=== PATIENT | male | born 1970 | race Hispanic/Latino ===

== ENCOUNTER 2018-10-12 01:03 | Emergency (ER) | payer OTHER ==
[~2018-10-12] VITALS: Ht 172.7 cm; Wt 147.0 kg
--- OUTSIDE RECORDS SUMMARY | 2018-10-12 01:06 | XMS REPORT | CCD ---
Author Author Auto Generated Organization [facility] [place] Address Unknown Phone Unavailable Care Team Providers Care Risk Intern Name Role Phone Pan Escobedo CP [phone] Allergies, Adverse Reactions, Alerts Substance Reaction Status No Known Medication Allergies Active Problem List Condition Effective Dates Status Abnormal EKG finding Active Allergic rhinitis Active BPH - Benign prostatic hypertrophy Active Deviated nasal septum Active Diabetes mellitus type 2 Active Diverticulitis 2013 Active Foot pain Active History of colonic polyp Active Hypercholesterolemia Active Hypertension Active Iron deficiency anemia Active Morbid obesity Active Ostomy care Active Plantar fasciitis Active Short Achilles tendon Active Sleep apnea Active Vitamin D deficiency Active Medications Medication Instructions Start Date End Date Status bisoprolol 5 mg oral 5 mg=1 tabs, Oral, qHS, 0 12/11/2015 12/25/2015 Ordered tablet Refill(s), HTN Lidocaine 2% 0.2 mL 0.2 mL, Injection, Subcutaneous, 12/23/2015 12/23/2015 Deleted IV Start [[facility]] Once PRN for other (see comment), first dose 12/23/15 6:15:00 CDT LR 1,000 mL 1,000 mL, IV, 30 mL/hr, start date 12/23/2015 12/23/2015 Discontinued 12/23/15 6:15:00 CDT fentaNYL 25 mcg=0.5 mL, Injection, IV, Once, 12/23/2015 12/23/2015 Completed first dose 12/23/15 7:37:00 CDT, stop date 12/23/15 7:37:00 CDT fentaNYL 25 mcg=0.5 mL, Injection, IV, Once, 12/23/2015 12/23/2015 Completed first dose 12/23/15 7:46:00 CDT, stop date 12/23/15 7:46:00 CDT fentaNYL 50 mcg=1 mL, Injection, IV, Once, 12/23/2015 12/23/2015 Deleted first dose 12/23/15 7:25:00 CDT, stop date 12/23/15 7:25:00 CDT fentaNYL 25 mcg=0.5 mL, Injection, IV, Once, 12/23/2015 12/23/2015 Completed first dose 12/23/15 7:30:00 CDT, stop date 12/23/15 7:30:00 CDT midazolam 1 mg=1 mL, Injection, IV, Once, 12/23/2015 12/23/2015 Completed first dose 12/23/15 6:53:00 CDT, stop date 12/23/15 6:53:00 CDT fentaNYL 50 mcg=1 mL, Injection, IV, Once, 12/23/2015 12/23/2015 Completed first dose 12/23/15 6:53:00 CDT, stop date 12/23/15 6:53:00 CDT lidocaine 4 mL, Injection, IV, Once, first 12/23/2015 12/23/2015 Completed dose 12/23/15 7:25:00 CDT, stop date 12/23/15 7:25:00 CDT midazolam 1 mg=1 mL, Injection, IV, Once, 12/23/2015 12/23/2015 Deleted first dose 12/23/15 7:25:00 CDT, stop date 12/23/15 7:25:00 CDT ceFAZolin + Sodium 3 gm, Powder-Inj, IV, Once, first 12/23/2015 12/23/2015 Completed Chloride 0.9% 300 mL dose 12/23/15 7:39:00 CDT, stop date 12/23/15 7:39:00 CDT dexamethasone 4 mg=1 mL, Injection, IV, Once, 12/23/2015 12/23/2015 Completed first dose 12/23/15 7:44:00 CDT, stop date 12/23/15 7:44:00 CDT [place] 5 mg-325 mg 1 tabs, Tab, Oral, q4hr PRN for 12/23/2015 12/23/2015 Discontinued oral tablet pain mild-moderate (1-6), first dose 12/23/15 8:52:00 CDTMax 4gm acetaminophen in 24 hours morphine 2 mg=0.2 mL, Injection, IV Push, 12/23/2015 12/23/2015 Deleted Once PRN for pain severe (7-10), first dose 12/23/15 8:52:00 CDT fentaNYL 25 mcg=0.5 mL, Injection, IV, Once, 12/23/2015 12/23/2015 Completed first dose 12/23/15 7:08:00 CDT, stop date 12/23/15 7:08:00 CDT midazolam 0.5 mg=0.5 mL, Injection, IV, Once, 12/23/2015 12/23/2015 Completed first dose 12/23/15 7:19:00 CDT, stop date 12/23/15 7:19:00 CDT midazolam 0.5 mg=0.5 mL, Injection, IV, Once, 12/23/2015 12/23/2015 Completed first dose 12/23/15 7:07:00 CDT, stop date 12/23/15 7:07:00 CDT fentaNYL 25 mcg=0.5 mL, Injection, IV, Once, 12/23/2015 12/23/2015 Completed first dose 12/23/15 8:13:00 CDT, stop date 12/23/15 8:13:00 CDT ondansetron 4 mg=2 mL, Injection, IV, Once, 12/23/2015 12/23/2015 Completed first dose 12/23/15 8:20:00 CDT, stop date 12/23/15 8:20:00 CDT propofol 300 mg=30 mL, Emulsion, IV, Once, 12/23/2015 12/23/2015 Completed first dose 12/23/15 8:19:00 CDT, stop date 12/23/15 8:19:00 CDT fentaNYL 25 mcg=0.5 mL, Injection, IV, Once, 12/23/2015 12/23/2015 Completed first dose 12/23/15 7:19:00 CDT, stop date 12/23/15 7:19:00 CDT Misc Medication 800 mL, Soln-IV, IV, Once, first 12/23/2015 12/23/2015 Completed dose 12/23/15 8:42:00 CDT, stop date 12/23/15 8:42:00 CDT Bupivacaine 0.25% 300 mL, Nerve Block, 5 mL/hr, start 12/23/2015 12/23/2015 Discontinued 300 mL pump 300 mL date 12/23/15 8:52:00 CDT Dilaudid 0.5 mg=0.25 mL, Injection, IV Push, 12/23/2015 12/23/2015 Discontinued q10min PRN for pain severe (7-10), first dose 12/23/15 8:52:00 CDT Demerol HCl 12.5 mg=0.25 mL, Injection, IV 12/23/2015 12/23/2015 Discontinued Push, Once PRN for shivers, first dose 12/23/15 8:52:00 CDT LR 1,000 mL 1,000 mL, IV, 75 mL/hr, start date 12/23/2015 12/23/2015 Discontinued 12/23/15 8:52:00 CDT Saline Lock Flush 10 mL, Soln, IV Push, As Indicated 12/23/2015 12/23/2015 Discontinued PRN for flush, first dose 12/23/15 8:52:00 CDT labetalol 5 mg=1 mL, Injection, IV Push, As 12/23/2015 12/23/2015 Discontinued Indicated PRN for hypertension, first dose 12/23/15 8:52:00 CDT ondansetron 4 mg=2 mL, Injection, IV Push, 12/23/2015 12/23/2015 Discontinued q15min PRN for nausea/vomiting, order duration: 2 doses, first dose 12/23/15 8:52:00 CDT, stop date Limited # of times promethazine 12.5 mg=0.5 mL, Injection, IM, Once 12/23/2015 12/23/2015 Discontinued PRN for severe nausea, first dose 12/23/15 8:52:00 CDT Xopenex 0.63 mg/3 mL 0.63 mg=3 mL, Soln, NEB, Once PRN 12/23/2015 12/23/2015 Discontinued inhalation solution for wheezing, first dose 12/23/15 8:52:00 CDT diphenhydrAMINE 25 mg=0.5 mL, Injection, IV Push, 12/23/2015 12/23/2015 Discontinued Once PRN for itching, first dose 12/23/15 8:52:00 CDT hydrALAZINE 10 mg=0.5 mL, Injection, IV Push, 12/23/2015 12/23/2015 Discontinued As Indicated PRN for hypertension, first dose 12/23/15 8:52:00 CDT ceFAZolin 3 gm, Soln-IV, IV Piggyback, Once, 12/23/2015 12/23/2015 Completed infuse over 30 minutes, first dose 12/23/15 7:00:00 CDT, stop date 12/23/15 7:00:00 CDT, patient weight >120 kg, Prophylaxis fenofibrate 54 mg 54 mg=1 tabs, Oral, Daily, 0 12/11/2015 12/25/2015 Ordered oral tablet Refill(s), cholesterol Vitamin D2 50,000 50,000 IntUnit=1 caps, Oral, Daily, 12/11/2015 12/25/2015 Ordered intl units (1.25 mg) 0 Refill(s) oral capsule metFORMIN 500 mg 1,000 mg=2 tabs, Oral, BID, hold, 0 12/11/2015 12/25/2015 Ordered oral tablet Refill(s), DM hold Lantus See Instructions, 35 units SUBQ QAM 12/11/2015 Ordered 30 units SubQ QPM check BS take 08/14 dose AM of surgery, 0 Refill(s), DM 35 units SUBQ QAM 30 units SubQ QPM check BS take 08/14 dose AM of surgery HumaLOG See Instructions, Subcutaneous TID 12/11/2015 Ordered with meals, 0 Refill(s), DM Subcutaneous TID with meals Invokana 300 mg oral 300 mg=1 tabs, Oral, Daily, 0 12/11/2015 12/25/2015 Ordered tablet Refill(s), DM enalapril 20 mg oral 20 mg=1 tabs, Oral, qHS, 0 12/11/2015 12/25/2015 Ordered tablet Refill(s), HTN Nasonex 50 mcg/inh 2 sprays, Nasal, Daily, PRN for 12/11/2015 12/25/2015 Ordered nasal spray allergy symptoms, # 17 gm, 0 Refill(s) Lyrica 75 mg oral 75 mg=1 caps, Oral, qHS, 0 12/11/2015 12/25/2015 Ordered capsule Refill(s), nerve pain tamsulosin 0.4 mg 0.4 mg=1 caps, Oral, Daily, 0 12/11/2015 12/25/2015 Ordered oral capsule Refill(s), BPH VESIcare 5 mg oral 5 mg=1 tabs, Oral, qHS, 0 12/11/2015 12/25/2015 Ordered tablet Refill(s), BPH amLODIPine 2.5 mg 2.5 mg=1 tabs, Oral, Daily, 0 12/11/2015 12/25/2015 Ordered oral tablet Refill(s), HTN ferrous sulfate 325 325 mg=1 tabs, Oral, Daily, 0 12/11/2015 12/25/2015 Ordered mg (65 mg elemental Refill(s), anemia iron) oral tablet atorvastatin 80 mg 80 mg=1 tabs, Oral, qHS, 0 12/11/2015 12/25/2015 Ordered oral tablet Refill(s), cholesterol fentaNYL 25 mcg=0.5 mL, Injection, IV, Once, 12/23/2015 12/23/2015 Completed first dose 12/23/15 8:05:00 CDT, stop date 12/23/15 8:05:00 CDT fentaNYL 25 mcg=0.5 mL, Injection, IV, Once, 12/23/2015 12/23/2015 Completed first dose 12/23/15 7:57:00 CDT, stop date 12/23/15 7:57:00 CDT Vital Signs Most recent to oldest [Reference Range]: 1 2 3 Temperature Oral [35.8-37.3 DegC] 36.8 DegC (12/23/2015 06:30:00) Temperature Temporal Artery [36.3-37.8 DegC] 36.1 DegC *LOW* (12/23/2015 08:30:00) Temperature Temporal Fahrenheit 96.98 (12/23/2015 08:30:00) Peripheral Pulse Rate [55-105 bpm] 59 bpm (12/23/2015 10:46:00) 56 bpm (12/23/2015 06:30:00) 70 bpm (12/11/2015 11:15:00) Heart Rate Monitored [60-100 bpm] 68 bpm (12/23/2015 09:40:00) 66 bpm (12/23/2015 09:30:00) 61 bpm (12/23/2015 09:20:00) Respiratory Rate [12-20] 16 (12/23/2015 10:46:00) 16 (12/23/2015 09:40:00) 16 (12/23/2015 09:30:00) SpO2 [90-100 %] 96 % (12/23/2015 10:46:00) 98 % (12/23/2015 09:40:00) 98 % (12/23/2015 09:30:00) Blood Pressure [110-120/65-85 mmHg] <content ID='[id number]'>125</content>/<content ID='[id number]'>72</content> mmHg *HI* (12/23/2015 10:46:00) <content ID='[id number]'>105</content>/<content ID='[id number]'>61</content> mmHg *LOW* (12/23/2015 09:40:00) <content ID='[id number]'>98</content>/<content ID='[id number]'>52</content> mmHg *LOW* (12/23/2015 09:30:00) Mean Arterial Pressure, Cuff 75.7 mmHg (12/23/2015 09:40:00) 67.3 mmHg (12/23/2015 09:30:00) 61.7 mmHg (12/23/2015 09:20:00) Most recent to oldest [Reference Range]: 1 2 3 Height 172.72 cm (12/23/2015 06:30:00) 172.72 cm (12/11/2015 11:15:00) Height/Length Dosing 172.72 cm (12/23/2015 06:30:00) 172.72 cm (12/11/2015 11:15:00) Height Inches 68 in (12/23/2015 06:30:00) 68 in (12/11/2015 11:15:00) Weight 142.88 kg (12/23/2015 06:30:00) 142.88 kg (12/11/2015 11:15:00) Weight Dosing 142.88 kg (12/23/2015 06:30:00) 142.88 kg (12/11/2015 11:15:00) Weight Pounds 314 lb (12/23/2015 06:30:00) 314 lb (12/11/2015 11:15:00) Body Mass Index 47.89 kg/m2 (12/23/2015 06:30:00) 47.89 kg/m2 (12/11/2015 11:15:00) Results LABORATORY Most recent to oldest [Reference Range]: 1 2 Blood Glucose, Capillary [74-106 mg/dL] 150 mg/dL *HI* (12/23/2015 08:52:00) 142 mg/dL *HI* (12/23/2015 06:29:00) Procedures Procedures Date Related Diagnosis Application of short leg splint (calf to foot) 12/22/2015 23:00:00 APPLICATION SHORT LEG SPLINT-CALF TO FOOT [id number] (Right)1 12/23/2015 07:47:00 Bowel resection with ostomy 2012 Colonoscopy EGD Electrocardiogram, routine ECG with at least 12 leads; 12/22/2015 23:00:00 tracing only, without interpretation and report Gastrocnemius recession (eg, Kasia procedure) 12/22/2015 23:00:00 GASTROCNEMIUS RECESSION [id number] (Right)2 12/23/2015 07:47:00 Ileoscopy Injection(s); single tendon sheath, or ligament, aponeurosis 12/22/2015 23:00:00 (eg, plantar "fascia") laparoscopic longitudinal gastrectomy 2014 OSTECTOMY W/EXCISION BONE SPUR CALCANEUS [id number] (Right)3 12/23/2015 07:47:00 Ostectomy, calcaneus; for spur, with or without plantar 12/22/2015 23:00:00 fascial release 1auto-populated from documented surgical case 2auto-populated from documented surgical case 3auto-populated from documented surgical case
--- OUTSIDE RECORDS SUMMARY | 2018-10-12 01:06 | XMS REPORT | Continuity of Care Document ---
Author Author [facility] Interface Address Unknown Phone Unavailable Problems Problem Status Onset Date Classification Date Reported Comments Source Diverticulitis 07/25/2012 Problem 12/25/2015 [facility] Abnormal EKG finding Problem 12/25/2015 [facility] Allergic rhinitis Problem 12/25/2015 [facility] BPH - Benign prostatic hypertrophy Problem 12/25/2015 [facility] Deviated nasal septum Problem 12/25/2015 [facility] Diabetes mellitus type 2 Problem 12/25/2015 [facility] Foot pain Problem 12/25/2015 [facility] History of colonic polyp Problem 12/25/2015 [facility] Hypercholesterolemia Problem 12/25/2015 [facility] Hypertension Problem 12/25/2015 [facility] Iron deficiency anemia Problem 12/25/2015 [facility] Morbid obesity Problem 12/25/2015 [facility] Ostomy care Problem 12/25/2015 [facility] Plantar fasciitis Problem 12/25/2015 [facility] Short Achilles tendon Problem 12/25/2015 [facility] Sleep apnea Problem 12/25/2015 [facility] Vitamin D deficiency Problem 12/25/2015 [facility] Medications Medication Details Route Status Patient Instructions Ordering Provider Order Date Source [place] 5 mg-325 mg oral tablet 1 tabs, Tab, Oral, q4hr PRN for pain mild-moderate (1-6), first dose 12/23/15 8:52:00 CDTMax 4gm acetaminophen in 24 hours Inactive [facility] 12/23/2015 [facility] morphine 2 mg=0.2 mL, Injection, IV Push, Once PRN for pain severe (7-10), first dose 12/23/15 8:52:00 CDT Inactive [facility] 12/23/2015 [facility] Bupivacaine 0.25% 300 mL pump 300 mL 300 mL, Nerve Block, 5 mL/hr, start date 12/23/15 8:52:00 CDT Inactive [place] 12/23/2015 [facility] Dilaudid 0.5 mg=0.25 mL, Injection, IV Push, q10min PRN for pain severe (7-10), first dose 12/23/15 8:52:00 [facility] Demerol HCl 12.5 mg=0.25 mL, Injection, IV Push, Once PRN for shivers, first dose 12/23/15 8:52:00 CDT [facility] LR 1,000 mL 1,000 mL, IV, 75 mL/hr, start date 12/23/15 8:52:00 CDT [facility] Saline Lock Flush 10 mL, Soln, IV Push, As Indicated PRN for flush, first dose 12/23/15 8:52:00 CDT [facility] labetalol 5 mg=1 mL, Injection, IV Push, As Indicated PRN for hypertension, first dose 12/23/15 8:52:00 CDT [facility] ondansetron 4 mg=2 mL, Injection, IV Push, q15min PRN for nausea/vomiting, order duration: 2 doses, first dose 12/23/15 8:52:00 CDT, stop date Limited # of times [facility] promethazine 12.5 mg=0.5 mL, Injection, IM, Once PRN for severe nausea, first dose 12/23/15 8:52:00 CDT [facility] Xopenex 0.63 mg/3 mL inhalation solution 0.63 mg=3 mL, Soln, NEB, Once PRN for wheezing, first dose 12/23/15 8:52:00 CDT [facility] diphenhydrAMINE 25 mg=0.5 mL, Injection, IV Push, Once PRN for itching, first dose 12/23/15 8:52:00 CDT Inactive [facility] hydrALAZINE 10 mg=0.5 mL, Injection, IV Push, As Indicated PRN for hypertension, first dose 12/23/15 8:52:00 CDT Inactive [facility] Misc Medication 800 mL, Soln-IV, IV, Once, first dose 12/23/15 8:42:00 CDT, stop date 12/23/15 8:42:00 CDT Inactive 12/23/2015 [facility] ondansetron 4 mg=2 mL, Injection, IV, Once, first dose 12/23/15 8:20:00 CDT, 12/23/15 8:20:00 CDT Inactive 12/23/2015 [facility] propofol 300 mg=30 mL, Emulsion, IV, Once, first dose 12/23/15 8:19:00 CDT, 12/23/15 8:19:00 CDT Inactive 12/23/2015 [facility] fentaNYL 25 mcg=0.5 mL, Injection, IV, Once, first dose 12/23/15 8:13:00 CDT, 12/23/15 8:13:00 CDT Inactive 12/23/2015 [facility] fentaNYL 25 mcg=0.5 mL, Injection, IV, Once, first dose 12/23/15 8:05:00 CDT, 12/23/15 8:05:00 CDT Inactive 12/23/2015 [facility] fentaNYL 25 mcg=0.5 mL, Injection, IV, Once, first dose 12/23/15 7:57:00 CDT, stop date 12/23/15 7:57:00 CDT Inactive 12/23/2015 [facility] fentaNYL 25 mcg=0.5 mL, Injection, IV, Once, first dose 12/23/15 7:46:00 CDT, stop date 12/23/15 7:46:00 CDT Inactive 12/23/2015 [facility] dexamethasone 4 mg=1 mL, Injection, IV, Once, first dose 12/23/15 7:44:00 CDT, 12/23/15 7:44:00 CDT Inactive 12/23/2015 [facility] ceFAZolin + Sodium Chloride 0.9% 300 mL 3 gm, Powder-Inj, IV, Once, first dose 12/23/15 7:39:00 CDT, stop 12/23/15 7:39:00 CDT Inactive 12/23/2015 [facility] fentaNYL 25 mcg=0.5 mL, Injection, IV, Once, first dose 12/23/15 7:37:00 CDT, stop date 12/23/15 7:37:00 CDT Inactive 12/23/2015 [facility] fentaNYL 25 mcg=0.5 mL, Injection, IV, Once, first dose 12/23/15 7:30:00 CDT, 12/23/15 7:30:00 CDT Inactive 12/23/2015 [facility] fentaNYL 50 mcg=1 mL, Injection, IV, Once, first dose 12/23/15 7:25:00 CDT, 12/23/15 7:25:00 CDT Inactive 12/23/2015 [facility] lidocaine 4 mL, Injection, IV, Once, first dose 12/23/15 7:25:00 CDT, 12/23/15 7:25:00 CDT Inactive 12/23/2015 [facility] midazolam 1 mg=1 mL, Injection, IV, Once, first dose 12/23/15 7:25:00 CDT, 12/23/15 7:25:00 CDT Inactive 12/23/2015 [facility] midazolam 0.5 mg=0.5 mL, Injection, IV, Once, first dose 12/23/15 7:19:00 CDT, stop 12/23/15 7:19:00 CDT Inactive 12/23/2015 [facility] fentaNYL 25 mcg=0.5 mL, Injection, IV, Once, first dose 12/23/15 7:19:00 CDT, stop 12/23/15 7:19:00 CDT Inactive 12/23/2015 [facility] fentaNYL 25 mcg=0.5 mL, Injection, IV, Once, first dose 12/23/15 7:08:00 CDT, stop date 12/23/15 7:08:00 CDT Inactive [facility] 12/23/2015 [facility] midazolam 0.5 mg=0.5 mL, Injection, IV, Once, first dose 12/23/15 7:07:00 CDT, stop date 12/23/15 7:07:00 CDT Inactive [facility] 12/23/2015 [facility] ceFAZolin 3 gm, Soln-IV, IV Piggyback, Once, infuse over 30 minutes, first dose 12/23/15 7:00:00 CDT, stop date 12/23/15 7:00:00 CDT, patient weight >120 kg, Prophylaxis Inactive [place] 12/23/2015 [facility] midazolam 1 mg=1 mL, Injection, IV, Once, first dose 12/23/15 6:53:00 CDT, stop date 12/23/15 6:53:00 CDT Inactive [facility] 12/23/2015 [facility] fentaNYL 50 mcg=1 mL, Injection, IV, Once, first dose 12/23/15 6:53:00 CDT, stop date 12/23/15 6:53:00 CDT Inactive [facility] 12/23/2015 [facility] Lidocaine 2% 0.2 mL IV Start [[facility]] 0.2 mL, Injection, Subcutaneous, Once PRN for other (see comment), first dose 12/23/15 6:15:00 CDT Inactive [place] 12/23/2015 [facility] LR 1,000 mL 1,000 mL, IV, 30 mL/hr, start date 12/23/15 6:15:00 CDT Inactive [place] 12/23/2015 [facility] fenofibrate 54 mg oral tablet 54 mg=1 tabs, Oral, Daily, 0 Refill(s), cholesterol Active 12/11/2015 [facility] Vitamin D2 50,000 intl units (1.25 mg) oral capsule 50,000 IntUnit=1 caps, Oral, Daily, 0 Refill(s) Active 12/11/2015 [facility] metFORMIN 500 mg oral tablet 1,000 mg=2 tabs, Oral, BID, hold, 0 Refill(s), DMhold Active 12/11/2015 [facility] Lantus See Instructions, 35 units SUBQ QAM 30 units SubQ QPM check BS take 08/14 dose AM of surgery, 0 Refill(s), DM35 units SUBQ QAM 30 units SubQ QPM check BS take 08/14 dose AM of surgery Active 12/11/2015 [facility] HumaLOG See Instructions, Subcutaneous TID with meals, 0 Refill(s), DMSubcutaneous TID with meals Active 12/11/2015 [facility] Invokana 300 mg oral tablet 300 mg=1 tabs, Oral, Daily, 0 Refill(s), DM Active 12/11/2015 [facility] enalapril 20 mg oral tablet 20 mg=1 tabs, Oral, qHS, 0 Refill(s), HTN Active 12/11/2015 [facility] Nasonex 50 mcg/inh nasal spray 2 sprays, Nasal, Daily, PRN for allergy symptoms, # 17 gm, 0 Refill(s) Active 12/11/2015 [facility] tamsulosin 0.4 mg oral capsule 0.4 mg=1 caps, Oral, Daily, 0 Refill(s), BPH Active 12/11/2015 [facility] bisoprolol 5 mg oral tablet 5 mg=1 tabs, Oral, qHS, 0 Refill(s), HTN Active 12/11/2015 [facility] Lyrica 75 mg oral capsule 75 mg=1 caps, Oral, qHS, 0 Refill(s), nerve pain Active 12/11/2015 [facility] VESIcare 5 mg oral tablet 5 mg=1 tabs, Oral, qHS, 0 Refill(s), BPH Active 12/11/2015 [facility] amLODIPine 2.5 mg oral tablet 2.5 mg=1 tabs, Oral, Daily, 0 Refill(s), HTN Active 12/11/2015 [facility] ferrous sulfate 325 mg (65 mg elemental iron) oral tablet 325 mg=1 tabs, Oral, Daily, 0 Refill(s), anemia Active 12/11/2015 [facility] atorvastatin 80 mg oral tablet 80 mg=1 tabs, Oral, qHS, 0 Refill(s), cholesterol Active 12/11/2015 [facility] Allergies, Adverse Reactions, Alerts Substance Category Reaction Severity Reaction type Status Date Reported Comments Source No Known Medication Allergies drug allergy Allergy [facility] Immunizations Immunization Date Given Site Status Last Updated Comments Source Results Order Name Results Value Reference Range Date Interpretation Comments Source LABORATORY Blood Glucose, Capillary 150 mg/dL 74 - 106 12/23/2015 [facility] LABORATORY Blood Glucose, Capillary 142 mg/dL 74 - 106 12/23/2015 [facility] Vital Signs Vital Sign Value Date Comments Source Respitory Rate 16 12/23/2015 [facility] Peripheral Pulse Rate 59 12/23/2015 [facility] Systolic (mm Hg) <content ID='[id number]'>125</content>/<content ID='[id number]'>72</content> 12/23/2015 [facility] Heart Rate 68 12/23/2015 [facility] Respitory Rate 16 12/23/2015 [facility] Systolic (mm Hg) <content ID='[id number]'>105</content>/<content ID='[id number]'>61</content> 12/23/2015 [facility] Respitory Rate 16 12/23/2015 [facility] Systolic (mm Hg) <content ID='[id number]'>98</content>/<content ID='[id number]'>52</content> 12/23/2015 [facility] Heart Rate 66 12/23/2015 [facility] Heart Rate 61 12/23/2015 [facility] Temperature Oral (F) 36.1 [place] 12/23/2015 [facility] Peripheral Pulse Rate 56 12/23/2015 [facility] Temperature Oral (F) 36.8 [place] 12/23/2015 [facility] Height 172.72 cm 12/23/2015 [facility] Weight 47.89 12/23/2015 [facility] Weight 142.88 12/23/2015 [facility] Weight 142.88 12/11/2015 [facility] Height 172.72 cm 12/11/2015 [facility] Peripheral Pulse Rate 70 12/11/2015 [facility] Weight 47.89 12/11/2015 [facility] Encounters Location Location Details Encounter Type Encounter Number Reason For Visit Attending Provider ADM Date DC Date Status Source [facility] Outpatient [id number] [facility] 12/23/2015 12/23/2015 Active [facility] Procedures Procedure Code Date Perfomer Comments Source APPLICATION SHORT LEG SPLINT-CALF TO FOOT 37419 (Right)<sup>1</sup> 12/23/2015 [facility] 1auto-populated from documented surgical case [facility] GASTROCNEMIUS RECESSION [id number] (Right)<sup>2</sup> 12/23/2015 [facility] 2auto-populated from documented surgical case [facility] OSTECTOMY W/EXCISION BONE SPUR CALCANEUS [id number] (Right)<sup>3</sup> 12/23/2015 [facility] 3auto-populated from documented surgical case [facility] Application of short leg splint (calf to foot) 39785 12/23/2015 [facility] Electrocardiogram, routine ECG with at least 12 leads; tracing only, without interpretation and report [id number] 12/23/2015 [facility] Gastrocnemius recession (eg, Kasia procedure) [id number] 12/23/2015 [facility] Injection(s); single tendon sheath, or ligament, aponeurosis (eg, plantar "fascia") [id number] 12/23/2015 [facility] Ostectomy, calcaneus; for spur, with or without plantar fascial release [id number] 12/23/2015 [facility] laparoscopic longitudinal gastrectomy 07/25/2013 [facility] Bowel resection with ostomy 07/25/2012 [facility] Colonoscopy [id number] [facility] EGD [facility] Ileoscopy [id number] [facility]
--- OUTSIDE RECORDS SUMMARY | 2018-10-12 01:06 | XMS REPORT | Summary of Care ---
Author Author [facility] Address [address] [place] [address] Phone Unavailable Care Team Providers Care Clinical Trial Head Name Role Phone Mark Hernadez, Maurisio Unavailable Unavailable SANTANA Uriarte, ALIREZA Unavailable Unavailable LESIA Uriarte, LUCINDA Unavailable Unavailable KINSEY Uriarte, RUCKTOMMYANDA Unavailable Unavailable MARK CHEESE COOK ALONA, MAURISIO Unavailable Unavailable Lesia SAINZ, Lucinda Unavailable Unavailable Unavailable Unavailable Functional Status Name Dates Details Functional status health issues are not documented Status: Name Dates Details Cognitive status health issues are not documented Status: Problems Name Dates Details Erectile dysfunction (607.84, N52.9) Status: Active Sciatica (724.3, M54.30) Status: Active Lumbar radiculopathy (724.4, M54.16) Status: Active Proteinuria (791.0, R80.9) Status: Active Renal glucosuria (271.4, E74.8) Status: Active Sleep apnea (780.57, G47.30) Status: Active BPH without urinary obstruction (600.00, N40.0) Status: Active Neuropathy (355.9, G62.9) Status: Active History of Need for influenza vaccination (V04.81, Z23) Status: Resolved Palpitations (785.1, R00.2) Status: Active Atypical facial pain (350.2, G50.1) Status: Active 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, 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) Status: Active Hypertrophy of inferior nasal turbinate (478.0, J34.3) Status: Active Hypertrophy of both inferior nasal turbinates (478.0, J34.3) Status: Active Nasal septal deviation (470, J34.2) Status: Active Granulation tissue abnormality (701.5, L92.9) Status: Active Cellulitis (682.9, L03.90) Status: Active Iron deficiency anemia (280.9, D50.9) Status: Active 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, E11.40) Status: Active Hyperlipidemia (272.4, E78.5) Status: Active Primary hypertension (401.9, I10) Status: Active Sexually transmissible disease (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.9, 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) Status: Active Colon polyp (211.3, K63.5) Status: Active Phlegm in throat (786.4, R09.89) Status: Active Morbid obesity with BMI of 50.0-59.9, adult (278.01, E66.01) Status: Active Need for influenza vaccination (V04.81, Z23) Status: Active Allergic rhinitis (477.9, J30.9) Status: Active Depression, major, recurrent, 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, 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) Status: Active Morbid obesity (278.01, E66.01) Status: Active Binge eating disorder (307.50, F50.81) Status: Active Depression (311, F32.9) Status: Active Chronic diarrhea (787.91, K52.9) Status: Active Irritable bowel syndrome with diarrhea (564.1, K58.0) Status: Active Uncontrolled type 2 diabetes mellitus (250.02, E11.65) Status: Active Benign essential hypertension (401.1, I10) Status: Active Diabetes mellitus (250.00, E11.9) Status: Active Diarrhea (787.91, R19.7) Status: Active Vitamin D deficiency (268.9, E55.9) Status: Active Tinea pedis, unspecified laterality (110.4, B35.3) Status: Active Overactive bladder (596.51, N32.81) Status: Active Change in stool (792.1, R19.5) Status: Active Medications Name Dates Details Enalapril Maleate 20 MG Oral Tablet TAKE 1 TABLET BY MOUTH DAILY Quantity: 90 Hardwicke N.P., Maurisio * Start : 05-Apr-2017 Active Atorvastatin Calcium 80 MG Oral Tablet TAKE 1 TABLET BY MOUTH AT BEDTIME * Quantity: 90 Refills: 3 Hardwicke N.P., Maurisio * Start : 18-Apr-2014 Active Tamsulosin HCl - 0.4 MG Oral Capsule Take 1 capsule by mouth twice a day * Quantity: 60 Refills: 10 Hardwicke N.P., Maurisio * Start : 05-Apr-2017 Active Accu-Chek SmartView In Vitro Strip TEST 3 TIMES DAILY. * Quantity: 3 Refills: 3 LUCINDA KAUFFMAN M.D. * Start : 02-Jul-2014 Active 100 Strip Box BD Pen Needle Mini U/F 31G X 5 MM use for insulin injections up to 5 injections daily * Quantity: 3 Refills: 2 LUCINDA KAUFFMAN M.D. * Start : 30-Sep-2014 Active 100 Unit Box Lyrica 150 MG Oral Capsule TAKE ONE CAPSULE BY MOUTH 3 TIMES A DAY * Quantity: 90 Refills: 4 LUCINDA KAUFFMAN M.D. * Start : 27-Jun-2017 Active Montelukast Sodium 10 MG Oral Tablet TAKE 1 TABLET BY MOUTH DAILY DIRECTED. * Quantity: 30 Refills: 11 Maurisio Flores N.P. * Start : 17-Apr-2015 Active AmLODIPine Besylate 2.5 MG Oral Tablet TAKE 1 TABLET DAILY * Quantity: 30 Refills: 11 LUCINDA KAUFFMAN M.D. * Start : 08-Jul-2015 Active Mometasone Furoate 50 MCG/ACT Nasal Suspension USE 2 SPRAYS IN EACH NOSTRIL BID * Quantity: 3 Refills: 1 Maurisio Flores N.P. * Start : 21-Oct-2015 Active 17 GM Inhaler Aspirin 81 MG Oral Tablet Chewable CHEW AND SWALLOW 1 TABLET DAILY. * Refills: 0 * Start : 29-Jan-2016 Active Lidocaine 5 % External Ointment Apply to affected area twice daily * Refills: 0 * Start : 25-Feb-2016 Active Fenofibrate 54 MG Oral Tablet TAKE 1 TABLET DAILY. * Quantity: 30 Refills: 11 Maurisio Flores N.P. * Start : 25-Feb-2016 Active Ferrous Gluconate 325 (36 Fe) MG TABS TAKE 1 TABLET DAILY * Refills: 0 * Start : 25-Feb-2016 Active DME CPAP supplies, mask and headgear, tubing, paper and sponge filters * Quantity: 1 Refills: 10 TONY EUECDA M.D. * Start : 09-Sep-2016 Active Escitalopram Oxalate 20 MG Oral Tablet TAKE 1 TABLET DAILY. * Quantity: 90 Refills: 3 Maurisio Flores N.P. * Start : 08-Jan-2017 Active Dextroamphetamine Sulfate 5 MG Oral Tablet TAKE 1 TABLET TWICE DAILY. * Refills: 0 * Start : 25-Jun-2017 Active Tresiba FlexTouch 200 UNIT/ML Subcutaneous Solution Pen-injector 80 units once daily replacing lantus * Quantity: 1 Refills: 3 LUCINDA KAUFFMAN M.D. * Start : 20-Aug-2017 Active 3 x 3 ML Pen Invokana 300 MG Oral Tablet 1 tab daily * Quantity: 1 Refills: 2 LUCINDA KAUFFMAN M.D. * Start : 20-Aug-2017 Active 90 Tablet Bottle HumaLOG KwikPen 200 UNIT/ML Subcutaneous Solution Pen-injector INJECT BY SUBCUTANEOUS ROUTE 3 TIMES A DAY BEFORE MEALS PER SLIDING SCALE UP TO 100 UNITS PER DAY * Quantity: 3 Refills: 11 LUCINDA KAUFFMAN M.D. * Start : 20-Aug-2017 Active 2 x 3 ML Pen EQ Athletes Foot 1 % External Cream APPLY 2-3 TIMES DAILY TO feet * Quantity: 1 Refills: 10 LUCINDA KAUFFMAN M.D. * Start : 20-Aug-2017 Active 14.2 GM Tube EnteraGam 5 GM Oral Packet TAKE 5 GM Daily * Refills: 0 * Start : 22-Sep-2017 Active Myrbetriq 25 MG Oral Tablet Extended Release 24 Hour TAKE 1 TABLET DAILY * Quantity: 30 Refills: 1 Maurisio Flores N.P. * Start : 03-Oct-2017 Active Dextroamphetamine Sulfate 5 MG Oral Tablet TAKE 1 TABLET TWICE DAILY. * Quantity: 60 Refills: 0 SANTANA Uriarte, ALIREZA * Start : 24-May-2017 Active BuPROPion HCl ER (XL) 300 MG Oral Tablet Extended Release 24 Hour TAKE 1 TABLET BY MOUTH DAILY * Quantity: 90 Refills: 3 SANTANA Uriarte ALIREZA * Start : 24-May-2017 Active Invokamet XR 150-1000 MG Oral Tablet Extended Release 24 Hour 2 tabs daily * Quantity: 60 Refills: 10 Mark EllisonPMaurisio Santos * Start : 29-Oct-2016 Active Bisoprolol Fumarate 5 MG Oral Tablet TAKE 1 TABLET ONCE DAILY. * Quantity: 30 Refills: 6 Mark N.PMaurisio Santos * Start : 14-Oct-2015 Active Allergies and Adverse Reactions Name Dates Details No Known Drug Allergies (Allergy) Status: Active Past Medical History Name Dates Details History of Abdominal cramping (789.00, R10.9) Status: Resolved History of Abnormal electrocardiogram (794.31, R94.31) Status: Resolved History of Acute pain (338.19, R52) Status: Resolved History of common cold (V12.09, Z86.19) Status: Resolved History of Diabetes mellitus, type 2 (250.00, E11.9) Status: Resolved History of diarrhea (V12.79, Z87.898) Status: Resolved History of Diverticulosis (562.10, K57.90) Status: Resolved History of Encounter for removal of sutures (V58.32, Z48.02) Status: Resolved History of Heart disease (429.9, I51.9) Status: Resolved History of High cholesterol (272.0, E78.00) Status: Resolved History of morbid obesity (V13.89, Z87.898) Status: Resolved History of nasal obstruction (V12.69, Z87.09) Status: Resolved History of Need for influenza vaccination (V04.81, Z23) Status: Resolved History of Need for vaccination for pneumococcus (V03.82, Z23) Status: Resolved History of Normal routine physical examination (V70.0, Z00.00) Status: Resolved History of pancreatitis (V12.79, Z87.19) Status: Resolved History of Penile rash (607.9, R21) Status: Resolved History of Preoperative clearance (V72.84, Z01.818) Status: Resolved History of shortness of breath (V13.89, Z87.898) Status: Resolved History of spondyloarthritis (V13.4, Z87.39) Status: Resolved History of stomatitis (V12.79, Z87.19) Status: Resolved History of Upper respiratory infection, acute (465.9, J06.9) Status: Resolved History of Urge incontinence of urine (788.31, N39.41) Status: Resolved History of urinary tract infection (V13.02, Z87.440) Status: Resolved Procedures Procedure Dates Details History of Colon Surgery Completed History of Gastric Surgery For Morbid Obesity Laparoscopic Longitudinal Gastrectomy Completed History of Nasal Septal Deviation Repair Completed Immunization Name Dates Details Influenza Lot #: [id number] on: 18-Apr-2014 Pneumococcal polysaccharide vaccine, 23 valent Lot #: [id number] on: 18-Apr-2014 Influenza Lot #: [id number] on: 05-Jun-2015 Fluzone Quadrivalent 0.5 ML Intramuscular Suspension Prefilled Syringe Lot #: [id number] on: 13-Apr-2017 Family History Name Dates Details Family history of essential hypertension (V17.49, Z82.49) Status: Active Family history of hyperlipidemia (V18.19, Z83.49) Status: Active Name Dates Details Family history of hypercholesterolemia (V18.19, Z83.42) Status: Active Social History Name Dates Details - Status: Name Dates Details Never smoker Never smoker Vital Signs Date Test Result Details No Known Vitals to report Results Date Description Value Details Results not documented Plan of Care Name Dates Details Planned Observations Planned Goals not documented Planned Encounters Appointment; Carl Burris M.D. On: 21-Nov-2017 14:30 Appointment; LUCINDA KAUFFMAN M.D. On: 02-Dec-2017 14:30 Appointment; Maurisio Flores NP On: 27-Mar-2018 14:30 Instructions Name Dates Details Instructions not documented Encounters Appointment; Carl Burris M.D. Encounter Diagnosis: Problem not documented On: 27-Oct-2015 14:30 Appointment; Carl Burris M.D. Encounter Diagnosis: Problem not documented On: 24-Nov-2015 13:15 Appointment; MILDRED ROB M.D. Encounter Diagnosis: Problem not documented On: 25-Nov-2015 13:30 Appointment; MILDRED ROB M.D. Encounter Diagnosis: Problem not documented On: 25-Nov-2015 13:30 Appointment; LUCINDA KAUFFMAN M.D. Encounter Diagnosis: Problem not documented On: 28-Nov-2015 14:00 Appointment; Maurisio Flores NP Encounter Diagnosis: Problem not documented On: 03-Dec-2015 16:00 Appointment; MILDRED ROB M.D. Encounter Diagnosis: Problem not documented On: 08-Jan-2016 14:00 Appointment; MILDRED ROB M.D. Encounter Diagnosis: Problem not documented On: 21-Jan-2016 11:00 Appointment; SHIREEN NAQVI M.D. Encounter Diagnosis: Problem not documented On: 29-Jan-2016 14:15 Appointment; TONY EUCEDA M.D. Encounter Diagnosis: Problem not documented On: 12-Feb-2016 14:40 Appointment; Maurisio Flores NP Encounter Diagnosis: Problem not documented On: 25-Feb-2016 13:30 Appointment; MILDRED ROB M.D. Encounter Diagnosis: Problem not documented On: 09-Mar-2016 14:00 Appointment; KALEY GONG NP Encounter Diagnosis: Problem not documented On: 18-Mar-2016 11:20 Appointment; MILDRED ROB M.D. Encounter Diagnosis: Problem not documented On: 31-Mar-2016 10:00 Appointment; LUCINDA KAUFFMAN M.D. Encounter Diagnosis: Problem not documented On: 02-Apr-2016 14:30 Appointment; Maurisio Flores NP Encounter Diagnosis: Problem not documented On: 12-May-2016 14:00 Appointment; TONY EUCEDA M.D. Encounter Diagnosis: Problem not documented On: 10-Jun-2016 14:40 Appointment; Maurisio Flores NP Encounter Diagnosis: Problem not documented On: 15-Jul-2016 15:15 Appointment; Carl Burris M.D. Encounter Diagnosis: Problem not documented On: 02-Aug-2016 14:00 Appointment; Maurisio Flores NP Encounter Diagnosis: Problem not documented On: 30-Aug-2016 14:15 Appointment; TONY EUCEDA M.D. Encounter Diagnosis: Problem not documented On: 09-Sep-2016 15:00 Appointment; Maurisio Flores NP Encounter Diagnosis: Problem not documented On: 20-Oct-2016 10:30 Appointment; JOSIANE SU M.D. Encounter Diagnosis: Problem not documented On: 26-Oct-2016 11:30 Appointment; LUCINDA KAUFFMAN M.D. Encounter Diagnosis: Problem not documented On: 29-Oct-2016 14:45 Appointment; Maurisio Flores NP Encounter Diagnosis: Problem not documented On: 29-Nov-2016 14:15 Appointment; NAHUM SIMONS M.D. Encounter Diagnosis: Problem not documented On: 30-Nov-2016 10:40 Appointment; Maurisio Flores NP Encounter Diagnosis: Problem not documented On: 02-Dec-2016 14:30 Appointment; Maurisio Flores NP Encounter Diagnosis: Problem not documented On: 08-Jan-2017 8:20 Appointment; LUCINDA KAUFFMAN M.D. Encounter Diagnosis: Problem not documented On: 04-Feb-2017 14:45 Appointment; TONY EUCEDA M.D. Encounter Diagnosis: Problem not documented On: 10-Mar-2017 14:00 Appointment; Maurisio Flores NP Encounter Diagnosis: Problem not documented On: 13-Apr-2017 15:15 Appointment; ALIREZA DILLON M.D. Encounter Diagnosis: Problem not documented On: 09-May-2017 15:00 Appointment; ALIREZA DILLON M.D. Encounter Diagnosis: Problem not documented On: 24-May-2017 14:00 Appointment; Maurisio Flores NP Encounter Diagnosis: Problem not documented On: 25-Jun-2017 10:20 Appointment; ALIREZA DILLON M.D. Encounter Diagnosis: Problem not documented On: 27-Jun-2017 16:00 Appointment; MORA CARMONA M.D. Encounter Diagnosis: Problem not documented On: 20-Jul-2017 11:00 Appointment; LUCINDA KAUFFMAN M.D. Encounter Diagnosis: Problem not documented On: 19-Aug-2017 14:30 Appointment; ALIREZA DILLON M.D. Encounter Diagnosis: Problem not documented On: 05-Sep-2017 15:30 Appointment; Maurisio Flores NP Encounter Diagnosis: Problem not documented On: 22-Sep-2017 14:45
--- NOTE | 2018-10-12 02:50 | Diagnostic Imaging Report ---
EXAMINATION: PA and lateral views of the chest. COMPARISON: None CLINICAL HISTORY: Chest congestion, pain for 3 days DISCUSSION: Lines/tubes: None. Lungs: The lungs are well inflated and clear. There is no evidence of pneumonia or pulmonary edema. Pleura: There is no pleural effusion or pneumothorax. Heart and mediastinum: Cardiomediastinal silhouette is unremarkable. Pulmonary vasculature is normal. Bones and soft tissues: No acute bony abnormalities. Degenerative changes in the thoracic spine IMPRESSION: No acute cardiopulmonary abnormalities. Signed by: Dr. Brian Bond M.D. on 10/12/2018 2:46 AM
[2018-10-12 03:09] LABS: STREPTOCOCCUS GRP A ANTIGEN NEGATIVE (NEGATIVE)
[2018-10-12 03:34] LABS: INFLUENZAE A&B ANTIGEN (RAPID) POSITIVE FLU A (NEGATIVE)
[2018-10-12] MEDS ORDERED: TYLENOL WITH C1 EACH PO (04:15)
== END 2018-10-12 04:40 | disposition home or self-care (01) ==
LOC: ER 01:03
DX: R50.9 Fever, unspecified (principal); R05 Cough; R09.89 Other specified symptoms and signs involving the circulatory and respiratory systems
CPT/HCPCS: 71046; 83518; 87070; 87400; 99283

== ENCOUNTER 2018-10-26 06:58 | Emergency (ER) | payer OTHER ==
[~2018-10-26] VITALS: Ht 172.7 cm; Wt 147.0 kg
[~2018-10-26 06:58] MED LIST: TYLENOL WITH C1 EACH PO
--- OUTSIDE RECORDS SUMMARY | 2018-10-26 07:01 | XMS REPORT ---
[facility] Address Unknown Phone Unavailable Care Team Providers Care Web Services Manager Name Role Phone [place] BARTLETT Unavailable Unavailable Problems This patient has no known problems. Allergies, Adverse Reactions, Alerts This patient has no known allergies or adverse reactions. Medications This patient has no known medications. Results Test Description Test Time Test Comments Text Results Atomic Results Result Comments CHEST 2 VIEWS 2018-10-12 02:46:00 [place] [address] Patient Name: HALEY HINTON MR #: [id number] : 1970 Age/Sex: 48/M Req #: [id number] Adm Physician: Ordered by: DIONTE BARTLETT MD Report #: [id number] Location: ER Room/Bed: Procedure: [id number] DX/CHEST 2 VIEWS Exam Date: 10/12/18 Exam Time: 0233 REPORT STATUS: Signed EXAMINATION: PA and lateral views of the chest. GROVER RISON: None CLINICAL HISTORY: Chest congestion, pain for 3 days DISCUSSION: Lines/tubes: None. Lungs: The lungs are well inflated and clear. There is no evidence of pneumonia or pulmonary edema. Pleura: There is no pleural effusion or pneumothorax. Heart and mediastinum: Cardiomediastinal silhouette is unremarkable. Pulmonary vasculature is normal. Bones and soft tissues: No acute bony abnormalities. Degenerative changes in the thoracic spine IMPRESSION: No acute cardiopulmonary abnormalities. Signed by: Dr. Haley Patel M.D. on 10/12/2018 2:46 AM Dictated By: HALEY PATEL MD 5 Transcribed By: MAURICE on 10/12/18245 COPY TO: DIONTE BARTLETT MD
== END 2018-10-26 07:40 | disposition left against medical advice (07) ==
LOC: ER 06:58
DX: R50.9 Fever, unspecified (principal)